=== PATIENT | male | born 1985 | race Caucasian/White ===

== ENCOUNTER → 2018-03-12 10:24 | Outpatient (POV) | payer MEDICARE, MEDICAID, SELFPAY ==
[2018-03-12 10:39] VITALS: BP 128/76; PULSE 87; RESP 18; O2SAT 99
--- NOTE | 2018-03-12 13:10 | HMH.PMCON ---
Assessment and Plan (1) Low back pain Current visit: Yes Status: Chronic Category: Medical Code(s): M54.5 - Low back pain (2) Left arm pain Current visit: Yes Status: Chronic Category: Medical Code(s): M79.602 - Pain in left arm - Assessment and plan all Dx Assessment and Plan for all problems:: Patient and I had a discussion about what we can offer him. I discussed with him that we would only be able to offer injective therapy or potential nerve stimulation for him. Patient did take some neuro stimulation information with him and he is going to call our office if he is interested. Patient does have a high ORT score patient would not be an opioid candidate. This note was dictated using voice recognition software and may contain errors or omissions HPI - Data of Consult Consult date: 03/12/18 Requesting Physician: Mirian Thomas APRN Primary Care Provider: Tay Villalta Provider: Param Pineda MD - Consult Narrative Reason for consult: Back and left arm pain History of present illness: Mr. Alfaro is a 33 year old male presents today for consultation in regards to his back and left arm pain. Patient states he is having low back pain along with left arm pain. Patient rates his pain today a 9 out of 10. Patient states he has tried chiropractic therapy, physical therapy, massage therapy. Patient states he has had injections in the past however he does not remember the doctor's name who gave them to him. Patient states that the injections made him worse. Patient states he has numbness and tingling down his left arm and left leg. Patient states bending and lifting increases pain while nothing decreases the pain. Patient's tried Lortab, gabapentin, naproxen, oxycodone, Lyrica, venlafaxine. Patient does utilize attends with minimal relief. Patient states he has low back imaging however we have none in our records. Patient states that this all began 3 years ago after falling off a roof he was working on. Patient states he has not been to a neurosurgeon in regards to his back pain. According to notes from primary care physician patient has tested positive for marijuana in the past and was tapered off his control pain medications. Also the notes state that he has been seen by a spine center. CC: Mirian Thomas APRN [facility] History I have reviewed the patient's past medical history: Yes Medical History: Reports:: Hyperlipidemia, Hypertension Other Medical History: Reports: Arthritis - *Social History Smoking Status: Current every day smoker Tobacco Type: cigarettes Alcohol Intake: never Occupational Status: other Housing: house Household Members: other - Psychiatric History Expresses thoughts of harming self/others: None Suicide Plan Description: No Plan *Family Hx:: Unable to obtain Review of Systems - Review of Systems ROS General: no recent weight change, no fever, no sleep disturbances Respiratory: no cough, no shortness of air, no recurring pulmonary infections Cardiovascular/Peripheral Vascular: No chest pain, No palpitations, no edema, no shortness of breath. Gastrointestinal: no incontinence, normal bowel movements reported Genitourinary: no incontinence Musculoskeletal: Back pain, left arm pain Psychiatric: Distracted Neurological: Weakness in left upper extremity, [denies balance issues] Meds Home Medications Medication Instructions Recorded Confirmed Type Aspirin 81 mg PO DAILY 03/12/18 03/12/18 History Atenolol [Atenolol 50mg Tab] 25 mg PO DAILY 03/12/18 03/12/18 History Diclofenac Sodium [Diclofenac 75mg 75 mg PO BID 03/12/18 03/12/18 History Tab] Pregabalin [Lyrica 100mg Cap] 100 mg PO TID 03/12/18 03/12/18 History Venlafaxine HCl [Venlafaxine HCl 37.5 mg PO DAILY 03/12/18 03/12/18 History ER] Allergies Allergy/AdvReac Type Severity Reaction Status Date / Time From JUNRA Allergy Mild Uncoded 10/02/17 14:03 Objec
--- NOTE | 2018-03-12 13:13 | P.CONS_ITS ---
Assessment and Plan (1) Low back pain Current visit: Yes Status: Chronic Category: Medical Code(s): M54.5 - Low back pain (2) Left arm pain Current visit: Yes Status: Chronic Category: Medical Code(s): M79.602 - Pain in left arm - Assessment and plan all Dx Assessment and Plan for all problems:: Patient and I had a discussion about what we can offer him. I discussed with him that we would only be able to offer injective therapy or potential nerve stimulation for him. Patient did take some neuro stimulation information with him and he is going to call our office if he is interested. Patient does have a high ORT score patient would not be an opioid candidate. This note was dictated using voice recognition software and may contain errors or omissions HPI - Data of Consult Consult date: 03/12/18 Requesting Physician: Mirian Thomas APRN Primary Care Provider: Tay Villalta Provider: Param Pineda MD - Consult Narrative Reason for consult: Back and left arm pain History of present illness: Mr. Alfaro is a 33 year old male presents today for consultation in regards to his back and left arm pain. Patient states he is having low back pain along with left arm pain. Patient rates his pain today a 9 out of 10. Patient states he has tried chiropractic therapy, physical therapy, massage therapy. Patient states he has had injections in the past however he does not remember the doctor's name who gave them to him. Patient states that the injections made him worse. Patient states he has numbness and tingling down his left arm and left leg. Patient states bending and lifting increases pain while nothing decreases the pain. Patient's tried Lortab, gabapentin, naproxen, oxycodone, Lyrica, venlafaxine. Patient does utilize attends with minimal relief. Patient states he has low back imaging however we have none in our records. Patient states that this all began 3 years ago after falling off a roof he was working on. Patient states he has not been to a neurosurgeon in regards to his back pain. According to notes from primary care physician patient has tested positive for marijuana in the past and was tapered off his control pain medications. Also the notes state that he has been seen by a spine center. CC: Mirian Thomas APRN [facility] History I have reviewed the patient's past medical history: Yes Medical History: Reports:: Hyperlipidemia, Hypertension Other Medical History: Reports: Arthritis - *Social History Smoking Status: Current every day smoker Tobacco Type: cigarettes Alcohol Intake: never Occupational Status: other Housing: house Household Members: other - Psychiatric History Expresses thoughts of harming self/others: None Suicide Plan Description: No Plan *Family Hx:: Unable to obtain Review of Systems - Review of Systems ROS General: no recent weight change, no fever, no sleep disturbances Respiratory: no cough, no shortness of air, no recurring pulmonary infections Cardiovascular/Peripheral Vascular: No chest pain, No palpitations, no edema, no shortness of breath. Gastrointestinal: no incontinence, normal bowel movements reported Genitourinary: no incontinence Musculoskeletal: Back pain, left arm pain Psychiatric: Distracted Neurological: Weakness in left upper extremity, [denies balance issues] Meds Home Medications Medication Instructions Recorded Confirmed Type Aspirin 81 mg PO DAILY 03/12/18 03/12/18 History Ateno
== END ==
PROVIDERS: Family Provider Family Medicine; PCP Family Medicine; Visit Provider Clinical Nurse Specialist Family Health
DX: M54.5 Low back pain (principal); M79.602 Pain in left arm
CPT/HCPCS: 99202

== ENCOUNTER → 2018-04-01 09:58 | Outpatient (POV) | payer MEDICARE, MEDICAID, SELFPAY ==
[2018-04-01 10:32] VITALS: BP 115/82; PULSE 87; RESP 18; O2SAT 99; BMI 31.9
--- NOTE | 2018-04-01 12:00 | PC.NURSE ---
PT HAD REQUESTED AN APPT WITH DR OTTO, REFERRAL WAS SENT 03/13. SPOKE WITH DR OTTO'S FRONT LINE LEADER FAYE WHO STATED SHE HAD TRIED TO CONTACT THE PT SEVERAL TIMES WITH NO ANSWER OR VOICEMAIL SET UP. I ALSO ATTEMPTED TO CALL THIS PT TO LET HIM KNOW TO ANSWER THE CALL AND/OR TO CALL DR OTTO'S OFFICE. MESSAGE STATES THAT THIS PERSON IS NOT RECEIVING CALLS AT THIS TIME , ALSO TRIED ALTERNATE NUMBER WHICH STATED IT WAS TEMPORARILY OUT OF SERVICE.
--- NOTE | 2018-04-01 12:15 | HMH.PAINSOAP ---
[facility] Pain Management SOAP Note Subjective:: Patient is a 33-year-old white male who presents today for follow-up. Patient had been consulted and given the option of potential nerve stimulation. Patient was not an opioid candidate due to his high ORT score. Patient had been receiving narcotic medications from several physicians prior to being seen by our office. Patient is tearful today stating that he is in extreme pain. Patient had been to the emergency room twice recently. Patient stated he did not get medications for his pain however according to his IRENA reports he did receive medications during these visits. Patient did have a CT at the time which showed a fatty liver and He did have some mild degenerative changes to his thoracic and lumbar spine. Patient states he has had injections before without any relief he does not remember the name of the physician he just remembers that he is from [facility]. Patient states that we were supposed to get him a psychological evaluation in order to determine if he was a candidate for stimulation. Patient referral was sent March 13 and due to the patient not picking up his phone or having voicemail they were unable to make his appointment. ROS General: no recent weight change, no fever, no sleep disturbances Respiratory: no cough, no shortness of air, no recurring pulmonary infections Cardiovascular/Peripheral Vascular: No chest pain, No palpitations, no edema, no shortness of breath. Gastrointestinal: no incontinence, normal bowel movements reported Genitourinary: no incontinence Musculoskeletal: Back pain, left arm pain, Psychiatric: normal mood/ affect Neurological: Weakness in left arm, [denies balance issues] Objective:: Physical Exam General: Alert and oriented x3, no acute distress, pleasant and cooperative, [on room air] Lungs: Resps E/U, Symmetrical chest expansion, Eyes: PERRL Musculoskeletal: Flexion and extension of lumbar spine somewhat guarded secondary to pain, deep tendon reflexes normal, strength in upper and lower extremities [5/5], normal gait noted Neurological: speech clear, lead programmer analyst equal, no gross sensory deficits Assessment:: Low back pain, left arm pain Plan:: We called the psychologist to confirm that they had received the referral. Patient does not have a voicemail set up in the office was unable to contact him. When we called the patient to inform him of this we were unable to contact him as well. When we do contact him we will set him up for a neurostimulator evaluation. Patient is not a narcotic candidate. I do have some concerns about his multiple ER visits. I will follow-up with this patient after a psychological evaluation. This note was dictated using voice recognition software and may contain errors or omissions
--- NOTE | 2018-04-01 12:19 | P.CONS_ITS ---
[facility] Pain Management SOAP Note Subjective:: Patient is a 33-year-old white male who presents today for follow-up. Patient had been consulted and given the option of potential nerve stimulation. Patient was not an opioid candidate due to his high ORT score. Patient had been receiving narcotic medications from several physicians prior to being seen by our office. Patient is tearful today stating that he is in extreme pain. Patient had been to the emergency room twice recently. Patient stated he did not get medications for his pain however according to his IRENA reports he did receive medications during these visits. Patient did have a CT at the time which showed a fatty liver and He did have some mild degenerative changes to his thoracic and lumbar spine. Patient states he has had injections before without any relief he does not remember the name of the physician he just remembers that he is from [facility]. Patient states that we were supposed to get him a psychological evaluation in order to determine if he was a candidate for stimulation. Patient referral was sent March 13 and due to the patient not picking up his phone or having voicemail they were unable to make his appointment. ROS General: no recent weight change, no fever, no sleep disturbances Respiratory: no cough, no shortness of air, no recurring pulmonary infections Cardiovascular/Peripheral Vascular: No chest pain, No palpitations, no edema, no shortness of breath. Gastrointestinal: no incontinence, normal bowel movements reported Genitourinary: no incontinence Musculoskeletal: Back pain, left arm pain, Psychiatric: normal mood/ affect Neurological: Weakness in left arm, [denies balance issues] Objective:: Physical Exam General: Alert and oriented x3, no acute distress, pleasant and cooperative, [ on room air] Lungs: Resps E/U, Symmetrical chest expansion, Eyes: PERRL Musculoskeletal: Flexion and extension of lumbar spine somewhat guarded secondary to pain, deep tendon reflexes normal, strength in upper and lower extremities [5/5], normal gait noted Neurological: speech clear, steel shot header operator equal, no gross sensory deficits Assessment:: Low back pain, left arm pain Plan:: We called the psychologist to confirm that they had received the referral. Patient does not have a voicemail set up in the office was unable to contact him. When we called the patient to inform him of this we were unable to contact him as well. When we do contact him we will set him up for a neurostimulator evaluation. Patient is not a narcotic candidate. I do have some concerns about his multiple ER visits. I will follow-up with this patient after a psychological evaluation. This note was dictated using voice recognition software and may contain errors or omissions
--- NOTE | 2018-04-02 11:10 | PC.PHONENOTE ---
PT CALLED AND STATED HE REALLY NEEDED HIS APPT WITH DR OTTO. PT GAVE UPDATED NUMBER AT THIS TIME. I PROVIDED PT WITH DR OTTO'S NUMBER AND TO ASK FOR FAYE. PT V/U. AT 1100AM FAYE FROM DR OTTO'S OFFICE CALLED AND STATED THE PT IS SCHEDULED FOR May AT 11AM.
== END ==
PROVIDERS: Family Provider Family Medicine; PCP Family Medicine; Visit Provider Clinical Nurse Specialist Family Health
DX: M54.5 Low back pain (principal)
CPT/HCPCS: 99212

== ENCOUNTER 2020-05-10 23:12 | Emergency (ER) | payer MEDICARE, MEDICAID, SELFPAY ==
[2020-05-10 23:24] VITALS: BP 135/94; PULSE 132; RESP 16; TEMP 37.1; O2SAT 97; BMI 42.3
[2020-05-10 23:36] VITALS: BP 135/94; PULSE 132; RESP 18; TEMP 37.1
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
== END 2020-05-10 23:38 | disposition home or self-care (01) ==
LOC: ER 23:33
PROVIDERS: Emergency Provider Family Medicine
DX: F10.10 Alcohol abuse, uncomplicated (principal); I10 Essential (primary) hypertension; F17.210 Nicotine dependence, cigarettes, uncomplicated; T24.002A Burn of unspecified degree of unspecified site of left lower limb, except ankle and foot, initial encounter; X12.XXXA Contact with other hot fluids, initial encounter
CPT/HCPCS: 99282